=== PATIENT | female | born 1995 | race Caucasian/White ===

== ENCOUNTER 2024-01-04 17:11 | Emergency (ER) | payer OTHER, SELFPAY ==
[2024-01-04 17:26] VITALS: BP 156/102; PULSE 108; RESP 20; TEMP 37.1; O2SAT 99
[2024-01-04 17:28] VITALS: BP 156/102; PULSE 108; RESP 20; TEMP 37.1; O2SAT 99
--- NOTE | 2024-01-04 17:46 | ED.URI ---
HPI - URI/Sore Throat General Chief Complaint: Upper Respiratory Infection Stated Complaint: cough Source: patient Mode of arrival: ambulatory Limitations: no limitations History of Present Illness HPI Narrative: 28-year-old female presented for complaint of cough and headache. Onset today. Endorses family with similar symptoms. She took a dose of DayQuil today. Patient smokes approximately 1/3 BPD. Denies shortness of breath, wheezing, nausea, vomiting, fevers or chills. Related Data Allergies Allergy/AdvReac Type Severity Reaction Status Date / Time No Known Allergies Allergy Unverified 01/07/16 15:57 Review of Systems Review of Systems: CONSTITUTIONAL: Denies body aches, fever, chills, or sweats. EYES: Denies visual changes, redness, or discharge. ENT: Denies rhinorrhea, congestion, sore throat, or otalgia. CARDIOVASCULAR: Denies chest pain, palpitations, or edema. RESPIRATORY: Reports cough, denies sob, wheezing. SKIN: Denies rash, itching, or wounds. MUSCULOSKELETAL: Denies back pain, joint pain, or myalgia. NEUROLOGIC: Denies numbness, tingling, or weakness. All systems reviewed & are unremarkable except as noted in HPI and below PMFSH Comments At time of signature, I have reviewed and agree with nursing past medical, surgical, social and family history unless otherwise noted. Please see nursing chart for further information. There is no relevant family history pertinent to the presenting complaint Exam Narrative: GENERAL: Well-appearing, in no acute distress. EYES: EOMI. No redness or drainage. Conjunctivae normal. ENT: Mucous membranes pink and moist. No rhinorrhea. TMs normal bilaterally. Throat normal. Uvula midline. NECK: Normal AROM. Supple. CHEST: No respiratory distress.Lungs clear to all zamorano. HEART: Regular rate and rhythm. No murmur appreciated. ABDOMEN: Soft, nontender, nondistended, normal active bowel sounds. SKIN: Warm, dry, no rash. Capillary refill normal. Normal skin turgor. NEURO: Alert and oriented x3. Gait steady. PSYCH: Normal affect. Course Course Emergency Course: Patient is aware of diagnosis, understands and agrees to treatment plan. Anticipatory guidance given. Patient agrees to follow-up as directed and is aware of reasons to seek care at the emergency department. Portions of this record may have been created with voice recognition software Level of Care: Express Care Visit Vital Signs Vital signs: Vital Signs Temperature 98.7 F 01/04/24 17:26 Pulse Rate 108 H 01/04/24 17:26 Respiratory Rate 20 01/04/24 17:26 Blood Pressure 156/102 H 01/04/24 17:26 Pulse Oximetry 99 01/04/24 17:26 Oxygen Delivery Room Air 01/04/24 17:26 Temperature 98.7 F 01/04/24 17:28 Pulse Rate 108 H 01/04/24 17:28 Respiratory Rate 20 01/04/24 17:28 Blood Pressure 156/102 H 01/04/24 17:28 Pulse Oximetry 99 01/04/24 17:28 Oxygen Delivery Room Air 01/04/24 17:28 MDM - URI/Sore Throat MDM Narrative Medical decision making narrative: declined viral testing . Discussed physical exam findings. Rx steroid. Advised supportive measures and signs/symptoms to go to the ER. Pt is appropriate for outpt treatment and f/u. Differential Diagnosis Differential diagnosis: Likely upper respiratory infection, otitis media, sinusitis, viral infection and bronchitis Discharge Plan Discharge Clinical Impression: Bronchitis Patient Disposition: Home, Self-Care Condition: Stable Instructions: Antibiotic Form, How to Stop Smoking (ED), Acute Bronchitis (ED) Additional Instructions: Your blood pressure reading was elevated (above 120/80) please follow-up with your primary care provider for further evaluation and management. If you develop worsening Blood Pressure symptoms, (headache, vision changes, dizziness, vomiting, chest pain, etc) go to the ER. Call 911. Take medication as directed Recommend Flonase spray and Zyrtec (or
== END 2024-01-04 17:53 | disposition home or self-care (01) ==
PROVIDERS: Emergency Provider Nurse Practitioner Family
DX: J40 Bronchitis, not specified as acute or chronic (principal)
CPT/HCPCS: 99213; G0463

== ENCOUNTER 2024-08-01 15:04 | Emergency (ER) | payer OTHER, SELFPAY ==
[2024-08-01 15:19] VITALS: BP 153/98; PULSE 111; RESP 16; TEMP 37; O2SAT 99
--- NOTE | 2024-08-01 15:24 | ED_ITS ---
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 Patient reports that she has history of being able to get but unable to carry baby she thinks she had miscarriage. Patient reports some lower abdomen cramping states like period cramps and reports that bleeding is light now. Patient reports that she has appointment tomorrow with PLATFORM OPERATIONS DIRECTOR in [place] for follow up. She states she needs note to return to work tomorrow. Patient reports that her menses are irregular unsure when last one. MD elicited complaint: possible miscarriage Onset (ago): day(s) (2 days ago) Location of symptoms: suprapubic (above) Severity scale (1-10): 4 Quality of pain: cramping Vaginal bleeding: scant (light) Treatment prior to arrival: other (Naprosyn and heating pad) Related Data Allergies Allergy/AdvReac Type Severity Reaction Status Date / Time No Known Allergies Allergy Unverified 01/07/16 15:57 Review of Systems Review of Systems: CONSTITUTIONAL: Denies fever, chills, or sweats. CARDIOVASCULAR: Denies chest pain, palpitations, or edema. RESPIRATORY: Denies cough or dyspnea. GASTROINTESTINAL: Denies acute abdominal pain, nausea, vomiting, or diarrhea. GENITOURINARY: Reports no dysuria, frequency, urgency. Denies flank pain or hematuria.Reports pelvic cramping and light vaginal bleeding SKIN: Denies rash or itching. MUSCULOSKELETAL: Denies back pain or myalgia. Denies CVA tenderness NEUROLOGIC: Denies headache All systems reviewed & are unremarkable except as noted in HPI and below PMFSH Past Medical History Medical History (Updated 08/03/24 @ 08:10 by Shirley Guerra NP) Asthma as child Miscarriage Obesity Surgical History Surgical History (Updated 08/03/24 @ 08:07 by Shirley Guerra NP) Previous section Social History Social History (Updated 08/03/24 @ 08:09 by Shirley Guerra NP) Smoking packs per day: 1 Smoking cigarettes per day: 20.0 Smoking status: Current every day smoker Tobacco type: cigarettes Alcohol intake: unknown Substance use: unknown Living arrangements: with family Gender identity (if verbalized by the patient): Female Comments At time of signature, agree with nursing past medical, surgical, social and family history. There is no relevant family history pertinent to the presenting complaint Exam Narrative: GENERAL: Well-appearing, well-nourished,obese and in no acute distress. HEAD: Normocephalic, atraumatic. NECK: Supple.no lymphadenopathy CHEST: Clear to auscultation. No respiratory distress.SAO2 99% on room air HEART: Regular rate and rhythm. No murmur heard. Normal peripheral pulses. ABDOMEN: Soft, nontender, nondistended, normal active bowel sounds. No CVA tenderness, pelvic cramping with light vaginal bleeding EXTREMITIES: Normal range of motion. No edema. SKIN: Warm, dry, no rash. NEURO: No focal deficits. Alert and oriented x3. Course Course Emergency Course: Patient is aware of diagnosis, understands and agrees to treatment plan.? Anticipatory guidance given.? Patient agrees to follow-up as directed and is aware of reasons to seek care at the emergency department. Portions of this record may have been created with voice recognition software Level of Care: Express Care Visit Vital Signs Vital signs: Vital Signs Temperature 37.0 C 08/01/24 15:19 Pulse Rate 111 H 08/01/24 15:19 Respiratory Rate 16 08/01/24 15:19 Blood Pressure 153/98 H 08/01/24 15:19 Pulse Oximetry 99 08/01/24 15:19 Oxygen Delivery Room Air 08/01/24 15:19 Temperature 37.0 C 08/01/24 15:19 Pulse Rate 111 H 08/01/24 15:19 Respiratory Rate 16 08/01/24 15:19 Blood Pressure 153/98 H 08/01/24 15:19 Pulse Oximetry 99 08/01/24 15:19 Oxygen Delivery Room Air 08/01/24 15:19 reviewed MDM - Female Genitourinary MDM Narrative Medical decision making narrative: Exam findings and UA show no acute concerns or changes; patient is non-toxic appearing and is in no distress.? Patient is appropriate for outpatient treatment and follow-up. Differential Diagnosis Differential diagnosis: Likely ruptured ovarian cyst and other (vaginal bleeding. possible miscarriage, uterine cramping) Medical Records Attestation: I reviewed the patient's medical records. Lab Data Attestation: I reviewed the patient's lab results. Critical Care Time Critical Care Time Critical Care Time: No Discharge Plan Discharge Clinical Impression: Uterine cramping, Vaginal bleeding Patient Disposition: Home, Self-Care Condition: Stable Instructions: Threatened Miscarriage (ED) Additional Instructions: Tylenol or ibuprofen for any fever pain can use Naprosyn Follow-up with PLATFORM OPERATIONS DIRECTOR tomorrow at appointment scheduled after work If increased bleeding or pain go directly to emergency room for further evaluation Maintain adequate fluid intake and also eat well-balanced diet If your symptoms persist, change or worsen significantly before you can contact your personal physician then please, without delay, go to the emergency department for further evaluation. Follow-up with PCP in 7-10 days or sooner if needed Follow up with PCP soon in regards to your blood pressure which is elevated above threshold for referral. Blood pressure above 120/80 may indicate pre-hypertension.153/98 Follow-up/Referrals: Mary Eisenberg RN [Primary Care Provider] - Stand Alone Forms: Work/School Release IP Time of Disposition: 15:49 Quality [place] Coma Scale Eyes: Open Verbal: Oriented and Alert Motor: Follows Commands [place] Coma Total Score: 15
== END 2024-08-01 15:57 | disposition home or self-care (01) ==
PROVIDERS: Emergency Provider Registered Nurse
DX: N94.6 Dysmenorrhea, unspecified (principal); N93.9 Abnormal uterine and vaginal bleeding, unspecified; F17.210 Nicotine dependence, cigarettes, uncomplicated; E66.9 Obesity, unspecified
CPT/HCPCS: 99211; G0463

== ENCOUNTER 2024-09-18 16:24 | Emergency (ER) | payer OTHER, SELFPAY ==
[2024-09-18 16:35] VITALS: BP 139/52; PULSE 108; RESP 24; TEMP 36.7; O2SAT 95
--- NOTE | 2024-09-18 17:17 | ED.URI ---
HPI - URI/Sore Throat General Chief Complaint: Upper Respiratory Infection Stated Complaint: poss Bronchitis Time Seen by Provider: 09/18/24 17:19 Source: patient, RN notes reviewed and old records reviewed Mode of arrival: ambulatory Limitations: no limitations History of Present Illness HPI Narrative: 28 year old female who presents to [facility] care with complaints of being seen in the ED 6 days ago and was diagnosed with Influenza A and received Tamiflu was given a breathing treatment in the ER and was sent home with nebulizer treatments. Patient reports that they saw Bronchitis on her chest x-ray. Patient does report history of asthma states she doesn't have an inhaler and states cough continues. Patient reports no recent fevers but reports continued wheezing. Patient does use tobacco daily. MD elicited complaint: cough and other (wheezing and some dyspnea) Pertinent past history: asthma Onset (ago): day(s) (initial symptoms started 10 days) Consistency: constant Severity: moderate Description of mucous: clear Able to tolerate fluids by mouth: Yes Treatments prior to arrival: other (Tamiflu, nebs) Related Data Home Medications ?Medication ?Instructions ?Recorded ?Confirmed ?Last Taken ?Type albuterol sulfate 2.5 mg/3 mL mg 09/18/24 Unknown History (0.083 %) solution for nebulization oseltamivir 75 mg capsule mg 09/18/24 Unknown History Allergies Allergy/AdvReac Type Severity Reaction Status Date / Time No Known Allergies Allergy Verified 09/18/24 16:49 Review of Systems Review of Systems: CONSTITUTIONAL: Reports malaise, no present chills, sweats, or fever. EYES: Denies visual changes, redness, or discharge. ENT: Reports rhinorrhea, congestion, no sinus pain, no otalgia and no sore throat. CARDIOVASCULAR: Denies chest pain, palpitations, or edema. RESPIRATORY: Reports cough.? Reports dyspnea. GASTROINTESTINAL: Denies abdominal pain, nausea, vomiting, diarrhea SKIN: Denies rash or itching.has eczema MUSCULOSKELETAL: Denies myalgia. NEUROLOGIC: Denies headache. All systems reviewed & are unremarkable except as noted in HPI and below PMFSH Past Medical History Medical History Eczema Obesity Asthma Miscarriage Surgical History Surgical History Previous section Social History Social History Smoking packs per day: 1 Smoking cigarettes per day: 20.0 Smoking status: Current every day smoker Tobacco type: cigarettes Alcohol intake: unknown Substance use: unknown Living arrangements: with family Gender identity (if verbalized by the patient): Female Comments At time of signature, agree with nursing past medical, surgical, social and family history. There is no relevant family history pertinent to the presenting complaint Exam Narrative: GENERAL: Well-appearing, well-nourished,unkept appearance obese. and in no acute distress. HEAD: Normocephalic EYES: PERRLA, conjunctivae clear ENT: Nares clear, turbinates edematous and erythematous, clear discharge. Mucous membranes moist. TM pearly duong with dull light reflex bilaterally; no tragal tenderness. Oropharynx erythematous without lesions. Tonsils not enlarged and without exudate, no drooling, no hoarseness, no trismus, uvula midline.post nasal drainage noted NECK: Supple. No lymphadenopathy CHEST: Scattered wheezing on auscultation, breath sounds equal.+wheezing,no rhonchi, rales, or stridor. No respiratory distress, speaks in full sentences. cough noted SAO2 95% on room air HEART: Regular rate and rhythm. No murmur heard. SKIN: Warm, dry, no rash. NEURO: Alert and oriented x3. PSYCH: Normal mood and affect Course Course Emergency Course: Patient is aware of diagnosis, understands and agrees to treatment plan.? Anticipatory guidance given.? Patient agrees to follow-up as directed and is aware of reasons to seek care at the emergency department. Portions of this record may have been created with voice recognition software Level of Care: Express Care Visit Vital Signs Vital signs: Vital Signs Temperature 36.7 C 09/18/24 16:35 Pulse Rate 108 H 09/18/24 16:35 Respiratory Rate 24 H 09/18/24 16:35 Blood Pressure 139/52 L 09/18/24 16:35 Pulse Oximetry 95 09/18/24 16:35 Oxygen Delivery Room Air 09/18/24 16:35 Temperature 36.7 C 09/18/24 16:35 Pulse Rate 108 H 09/18/24 16:35 Respiratory Rate 24 H 09/18/24 16:35 Blood Pressure 139/52 L 09/18/24 16:35 Pulse Oximetry 95 09/18/24 16:35 Oxygen Delivery Room Air 09/18/24 16:35 Reviewed MDM - URI/Sore Throat MDM Narrative Medical decision making narrative: Differential diagnosis considered: Avendano virus, strep pharyngitis, allergic rhinitis, upper respiratory tract infection, sinusitis, rhinosinusitis, nasopharyngitis. viral pharyngitis, otitis media, otitis externa, pneumonia, bronchitis, viral cough syndrome, viral syndrome, and influenza.? Exam findings show no acute concerns or changes; patient is non-toxic appearing and is in no distress.? Patient is appropriate for outpatient treatment and follow-up. Differential Diagnosis Differential diagnosis: Likely upper respiratory infection, viral infection, bronchitis, influenza and other (exacerbation of asthma) Medical Records Attestation: I reviewed the patient's medical records. Lab Data Attestation: I reviewed the patient's lab results. Critical Care Time Critical Care Time Critical Care Time: No Discharge Plan Discharge Clinical Impression: Asthma exacerbation Qualifiers: Asthma severity: moderate Asthma persistence: persistent Qualified Code(s): J45.41 - Moderate persistent asthma with (acute) exacerbation Patient Disposition: Home, Self-Care Condition: Stable Instructions: Antibiotic Form, Asthma (ED), Influenza (ED) Additional Instructions: Increase fluids especially juices and water Feih-fuw-[id number] cough and cold medicine of your choice for your symptoms Continue your inhaler/nebulizer as directed Zyrtec Claritin or Marielle daily Steroids as directed--take with food heat to the face 20-30 minutes 4-6 times a day for pain Salt water gargles, throat lozenges or throat sprays as desired If your symptoms persist, change or worsen significantly before you can contact your personal physician then please, without delay, go to the emergency department for further evaluation. Follow-up with PCP in 7-10 days or sooner if needed Follow up with PCP soon in regards to your blood pressure which is elevated above threshold for referral. Blood pressure above 120/80 may indicate pre-hypertension. 139/52 STOP SMOKING Patient Language: Khmer Prescriptions: New prednisone 20 mg tablet 20 mg PO BID Qty: 10 0RF albuterol sulfate [Ventolin HFA] 90 mcg/actuation HFA aerosol inhaler 2 puff inhalation QID PRN (Reason: shortness of breath or wheezing) Qty: 8.5 0RF loratadine [Claritin] 10 mg tablet 10 mg PO DAILY Qty: 20 0RF No Action albuterol sulfate 2.5 mg /3 mL (0.083 %) solution for nebulization oseltamivir 75 mg capsule Follow-up/Referrals: PHYSICIAN NOT ON STAFF,NONSTAFF [Primary Care Provider] - Time of Disposition: 17:44 Quality [place] Coma Scale Eyes: Open Verbal: Oriented and Alert Motor: Follows Commands Isabella Coma Total Score: 15
== END 2024-09-18 17:50 | disposition home or self-care (01) ==
PROVIDERS: Emergency Provider Registered Nurse
DX: J45.901 Unspecified asthma with (acute) exacerbation (principal); F17.210 Nicotine dependence, cigarettes, uncomplicated; E66.9 Obesity, unspecified; Z68.43 Body mass index [BMI] 50.0-59.9, adult
CPT/HCPCS: 99213; G0463

== ENCOUNTER 2025-01-12 15:46 | Emergency (ER) | payer OTHER, SELFPAY ==
[2025-01-12 16:17] VITALS: BP 103/83; PULSE 93; RESP 16; TEMP 36.9; O2SAT 99
[2025-01-12 16:24] LABS: EDSTREPNEGPOS1 Negative (Negative)
--- OUTSIDE RECORDS SUMMARY | 2025-01-12 16:44 | XMS_ITS | Clinical Summary ---
Author Organization [facility] Care Team Providers Care Bar Attendant Name Role Phone Darrick Aisha Tiffanie BERG Primary Care Provider [phone] Allergies No known active allergies Medications methylPREDNISol one (MEDROL, ANA,) 4 mg tablet take as directed 1 0 6 Active promethazine-co deine (PHENERGAN with CODEINE) 1.25-2 mg/mL syrupIndication s:Influenza A Take 5 mL by mouth every 4 (four) hours as needed for cough 240 mL 5 Active albuterol 2.5 mg /3 mL (0.083 %) nebulizer solution Take 3 mL (2.5 mg total) by nebulization every 6 (six) hours as needed for wheezing 75 mL 5 09/12/19 26 Active Active Problems Problem Noted Date Diagnosed Date Bipolar I disorder, most recent episode depresse d 08/02/2013 Overview (12/17/2016): Bipolar disorder with depression Tobacco use 08/02/2013 Overview (12/17/2016): Tobacco use Medical History Medical History Date Comments Hx Other Medical Bipolar disorde r Social History Tobacco Use Types Packs/Day Years Used Date Smoking Tobacco: Heavy Smoker Comments:Smoking History Pac ks/day: 10 Cigarettes Alcohol Use Standard Drinks/Week Comments No 0 (1 standard drink = 0.6 oz pur e alcohol) Personal Safety Answer Date Recorded Have you ever been in or are you currently in a harmful physical or emotional relationship or is someone making you feel afraid or unsafe? 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 Gender Identity Not on file Sexual Orientation Not on file Obstetrics History Last Filed Vital Signs Vital Sign Reading Time Taken Comments Blood Pressure 144/72 09/12/2024 9:20 PM FOOD CART ATTENDANT Pulse 104 09/12/2024 9:20 PM FOOD CART ATTENDANT Temperature 37 C (98.6 F) 09/12/2024 8:38 PM FOOD CART ATTENDANT Respiratory Rate 20 09/12/2024 9:20 PM FOOD CART ATTENDANT Oxygen Saturation 95% 09/12/2024 9:20 PM FOOD CART ATTENDANT Inhaled Oxygen Concentration - - Weight 158.8 kg (350 lb) 09/12/2024 3:40 PM FOOD CART ATTENDANT Height 167.6 cm (5' 6 ) 09/12/2024 3:40 PM FOOD CART ATTENDANT Body Mass Index 56.49 09/12/2024 3:40 PM FOOD CART ATTENDANT Plan of Treatment Health Maintenance Due Date Last Done Comments Cervical Cancer Screening 1994 Depression Screening 1994 Hepatitis C Screening 1994 Varicella Vaccines (1 of 2 - 13+ 2-dose series) 2007 Regular Well Visit/Exam 18-64 2012 Pneumococcal vaccine <65 (1 of 2 - PCV) 2013 Covid-19 Vaccine (2 - 2023- season) 2024 02/19/2022 DTaP/Tdap/Td Vaccine (7 - Td or Tdap) 03/12/2025 03/12/2015, 06/21/2002, 06/11/1996, Additional history exists Influenza Vaccine (Season Ended) 2025 Hepatitis B Screening Completed 07/08/1995 , 1994, 1994 HPV Vaccines Aged Out No longer eligi ble based on patient's age to complete this topic Insurance [employer] Care Teams Bar Attendant Relationship Specialty Start Date End Date Aisha Hollingsworth NP PCP - General Nurse Practitioner 02/17/22
--- OUTSIDE RECORDS SUMMARY | 2025-01-12 16:44 | XMS_ITS | Referral Summary ---
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 CONTROLLER Gender Identity Not on file Sexual Orientation Not on file Last Filed Vital Signs Vital Sign Reading Time Taken Comments Blood Pressure 144/72 09/12/2024 9:20 PM STATUS CONTROLLER Pulse 104 09/12/2024 9:20 PM STATUS CONTROLLER Temperature 37 C (98.6 F) 09/12/2024 8:38 PM STATUS CONTROLLER Respiratory Rate 20 09/12/2024 9:20 PM STATUS CONTROLLER Oxygen Saturation 95% 09/12/2024 9:20 PM STATUS CONTROLLER Inhaled Oxygen Concentration - - Weight 158.8 kg (350 lb) 09/12/2024 3:40 PM STATUS CONTROLLER Height 167.6 cm (5' 6 ) 09/12/2024 3:40 PM STATUS CONTROLLER Body Mass Index 56.49 09/12/2024 3:40 PM STATUS CONTROLLER Plan of Treatment Not on file Insurance [facility] Care Teams Dent Remover Relationship Specialty Start Date End Date Aisha Hollingsworth NP PCP - General Nurse Practitioner 02/17/22
--- OUTSIDE RECORDS SUMMARY | 2025-01-12 16:44 | XMS_ITS | Clinical Summary ---
Author Organization [facility] Address [address] [address] Phone Care Team Providers Care Bog Cutter Name Role Phone Aisha Hollingsworth APRN, CNP Primary Care Provider + Allergies No known active allergies Medications fluticasone (FLONASE) 50 MCG/ACT Suspension 1 [place] by Nasal route daily. Use in each nostril as directed. 1 g 09/26/2024 Active Active Problems No known active problems Immunizations Immunization Administration Dates Next Due Covid-19 Vaccine, Vector-nr, Rs-ad26, Pf, 0.5 Ml (Soshowise/J&J) 02/19/2022 DTP Vaccine 06/11/1996, 5,03/29/1995,1994 Hepatitis B Vaccine, Pediatric/adolescent 07/08/1995,1994,1994 Hib Vaccine,unspecified Formulation 07/08/1995,0 03/29/1995,01/18/1995 Inactivated Polio Vaccine 06/21/2002 MMR Vaccine 06/21/2002,06/11/1996 OPV 06/11/1996,03/29/1995,01/18/1995 TD VACCINE 06/21/2002 TDAP Vaccine 03/12/2015 Family History Medical History Relation Name Comments No Known Problems Father Congestive Heart Failure Maternal Grandmother Multiple Sclerosis Mother Cancer Sister Relation Name Status Comments Father Maternal Grandmother Mother Sister Social History Tobacco Use Types Packs/Day Years Used Date Smoking Tobacco: Former Cigarettes 0.5 20.3 S tarted: 2004 Smokeless Tobacco: Never Alcohol Use Standard Drinks/Week Comments Not Currently 0 (1 standard drink = 0.6 oz pur e alcohol) Education Answer Date Recorded What is the highest level of school you have completed or the highest degree you have received? GED or equivalent Sexually Active Control Partners Comments Yes None Male Comments Unknown Sex and Gender Information Value Date Recorded Sex Assigned at Not on file Legal Sex Female 7:42 PM CDT Gender Identity Not on file Sexual Orientation Not on file Last Filed Vital Signs Vital Sign Reading Time Taken Comments Blood Pressure 150/97 09/26/2024 11:19 AM MUSIC PUBLICIST Pulse 100 09/26/2024 11:19 AM MUSIC PUBLICIST Temperature 37.3 C (99.1 F) 09/26/2024 10:10 AM MUSIC PUBLICIST Respiratory Rate 22 09/26/2024 11:19 AM MUSIC PUBLICIST Oxygen Saturation 98% 09/26/2024 11:19 AM MUSIC PUBLICIST Inhaled Oxygen Concentration - - Weight 163.3 kg (360 lb) 09/26/2024 10:10 AM MUSIC PUBLICIST Height 167.6 cm (5' 6 ) 09/26/2024 10:10 AM MUSIC PUBLICIST Body Mass Index 58.11 09/26/2024 10:10 AM MUSIC PUBLICIST Plan of Treatment Health Maintenance Due Date Last Done Comments Hepatitis C Virus (HCV) Screening 1994 Pap Smear 2015 Influenza Immunization (#1) 2024 SARS-COV-2 Immunization ( season) 2024 02/19/2022 Cervical Cancer Screening (CCS) 2024 HPV/Cotest 2024 DTaP/Tdap/Td Immunization (7 - Td or Tdap) 03/12/2025 03/12/2015, 06/21/2002, 06/11/1996, Additional history exists Respiratory Syncytial Virus (RSV) Immunization (Adult) (1 - 1-dose 75+ series) 2069 Hepatitis B Immunization Completed 995, 1994, 1994 Meningococcal Immunization (ACWY) Aged Out No longer eligible based on patient's age to complete this topic Pneumococcal Immunization Combined Aged Out No longer eligible based on patient's age to complete this topic Rotavirus Immunization Aged Out No lo nger eligible based on patient's age to complete this topic Insurance MEDICAID [employer] Care Teams Bog Cutter Relationship Specialty Start Date End Date Aisha Hollingsworth APRN, WHEEL INSTALLER [address] [place] [address] PCP - General Advanced Practice Nurse 09/26/24
--- OUTSIDE RECORDS SUMMARY | 2025-01-12 16:44 | XMS_ITS | Clinical Summary ---
Author Organization [facility] Address [address] [place] [address] Care Team Providers Care Industrial Chemist Name Role Phone Unavailable Primary Care Provider Unavailabl e Source Comments [facility],non-owned Affiliates and Associated Physician Practices is amultiple site organization consisting of ambulatory clinics and hospital sitesin [place], [place], [place] and [place]. This disclosure is being madepursuant to the Care Everywhere program and may not contain all information available regarding this patient. Last updated 18.[employer] [facility] Allergies No known active allergies Medications * Be aware that medications may not be up to date on this document. Alwaysverify current medications with the patient. ondansetron (ZOFRAN) 4 MG tablet Take 1 Tab by mouth every 4 hours as needed for Nausea/Vomiting. 10 Tab 0 4 Active Additional Information Patient not taking.Reported on 04/24/2015 omeprazole (PRILOSEC) 20 MG capsule Take 1 Cap by mouth daily before breakfast. 30 Cap 0 4 Active Active Problems Problem Noted Date Diagnosed Date Abdominal pain, acute 07/24/2013 Social History Tobacco Use Types Packs/Day Years Used Date Smoking Tobacco: Every Day Cigarettes 1.5 3 Smokeless Tobacco: Never Alcohol Use Standard Drinks/Week Comments Yes 0 (1 standard drink = 0.6 oz pur e alcohol) Comments No Sex and Gender Information Value Date Recorded Sex Assigned at Not on file Legal Sex Female 5:36 AM SENIOR TECHNICAL EDITOR Gender Identity Not on file Sexual Orientation Not on file Last Filed Vital Signs Vital Sign Reading Time Taken Comments Blood Pressure 144/95 08/19/2014 1:14 PM SENIOR TECHNICAL EDITOR Pulse 104 08/19/2014 1:14 PM SENIOR TECHNICAL EDITOR Temperature 37.1 C (98.7 F) 08/19/2014 8:32 AM SENIOR TECHNICAL EDITOR Respiratory Rate 20 08/19/2014 1:14 PM SENIOR TECHNICAL EDITOR Oxygen Saturation 98% 08/19/2014 1:07 PM SENIOR TECHNICAL EDITOR Inhaled Oxygen Concentration - - Weight 127.5 kg (281 lb) 07/10/2015 12:03 PM CDT Height 167.6 cm (5' 6 ) 08/19/2014 8:32 AM SENIOR TECHNICAL EDITOR Body Mass Index 45.35 08/19/2014 8:32 AM SENIOR TECHNICAL EDITOR Plan of Treatment Health Maintenance Due Date Last Done Comments HIV SCREENING 2009 HEPATITIS C SCREENING 11/04/2012 DTAP/TDAP/TD VACCINES (1 - Tdap) 2013 HEPATITIS B VACCINE (1 of 3 - 19+ 3-dose series) 2013 COVID-19 VACCINE (1 - 2023-2 5 season) 2024 DEPRESSION SCREENING 09/12/2024 INFLUENZA VACCINE (Season Ended) 2025 ZOSTER VACCINE (1 of 2) 2044 HIB VACCINE Aged Out No longer eligi ble based on patient's age to complete this topic HPV VACCINE Aged Out No longer eligi ble based on patient's age to complete this topic MENINGOCOCCAL (Group B) VACC INE SHARED DECISION-MAKING Aged Out No longer eligibl e based on patient's age to complete this topic MENINGOCOCCAL GROUPS A/C/Y/W VACCINE Aged Out No longer eligible b ased on patient's age to complete this topic PNEUMOCOCCAL VACCINE Aged Out No long er eligible based on patient's age to complete this topic Insurance [employer]
--- NOTE | 2025-01-12 16:58 | ED.DENTAL ---
HPI - Dental/Oral General Chief complaint: Dental/Oral Stated complaint: lump in mouth Time Seen by Provider: 01/12/25 16:20 Source: patient and RN notes reviewed Mode of arrival: ambulatory Limitations: no limitations History of Present Illness HPI Narrative: 29-year-old female presents Express Care complaining possible dental abscess in the right upper mouth. Patient says she has multiple dental cavities reports worsening pain and swelling inside her mouth over the last week. Patient says he has appointment coming up in a month with her dentist to address the issue. Patient is worried she is a dental infection. Patient also says he is getting over an upper respiratory infection. Patient denies any chest pain, shortness of breath, difficulty eating, difficulty swallowing, or any swelling under her tongue. Related Data Home Medications ?Medication ?Instructions ?Recorded ?Confirmed ?Last Taken ?Type albuterol sulfate 2.5 mg/3 mL mg 09/18/24 Unknown History (0.083 %) solution for nebulization Allergies Allergy/AdvReac Type Severity Reaction Status Date / Time No Known Allergies Allergy Verified 01/12/25 16:21 Review of Systems Review of Systems: CONSTITUTIONAL: Denies fever, chills, or sweats. EYES: Denies visual changes, redness, or discharge. ENT: Denies rhinorrhea, congestion, sore throat, difficulty swallowing, or otalgia. MOUTH: Positive for dental pain and swelling. CARDIOVASCULAR: Denies chest pain, palpitations, or edema. RESPIRATORY: Denies cough or dyspnea. GASTROINTESTINAL: Denies abdominal pain, nausea, vomiting, or diarrhea. GENITOURINARY: Denies dysuria or hematuria. SKIN: Denies rash or itching. MUSCULOSKELETAL: Denies back pain, joint pain, or myalgia. NEUROLOGIC: Denies headache, numbness, or weakness. PSYCHIATRIC: Denies anxiety or depression. All other systems reviewed are negative, except as documented in HPI. [facility] Past Medical History Medical History Eczema Obesity Asthma Miscarriage Surgical History Surgical History Previous section Social History Social History Smoking packs per day: 1 Smoking cigarettes per day: 20.0 Smoking status: Current every day smoker Tobacco type: cigarettes Alcohol intake: unknown Substance use: unknown Living arrangements: with family Gender identity (if verbalized by the patient): Female Comments At the time of my signature, I reviewed and agree with the nursing past medical, surgical, social, and family history. There is no relevant family history pertinent to the patient complaint. Exam Narrative: GENERAL: This is a well-nourished, well-developed adult, in no apparent distress. They are non ill-appearing, nontoxic appearing. Patient is morbidly obese. Difficult exam due to large body habitus. HEAD: normocephalic, atraumatic. EYES: Sclera clear/white. Conjunctiva normal. Vision is grossly intact. Extraocular movements intact EARS: External ears normal, auditory canals clear and without drainage, TMs normal without perforation. Hearing grossly intact. NOSE: External nose normal with no obvious nasal discharge, nasal turbinates erythemic without swelling. No rhinorrhea. THROAT: Mucous membranes moist, posterior pharynx clear, without erythema or swelling. Uvula midline. Normal movement of soft palate. MOUTH: Multiple dental caries present. Gingivitis present to the upper gumline extending to the right side. Mild swelling to the right upper gum. No area of fluctuance or induration. No trismus. No swelling or pain of the tongue. No exudate. NECK: Neck supple, non-tender without lymphadenopathy, masses or thyromegaly. CARDIOVASCULAR: Regular rate and rhythm without murmurs, gallops, or rubs. RESPIRATORY: Clear to auscultation. Breath sounds equal bilaterally. No wheezes, rales, or rhonchi. SKIN: warm, Dry, intact with no suspicious lesions or rash, good texture and turgor. NEURO: awake, alert, and oriented to person, place and time. There were no obvious focal neurologic abnormalities. EXTREMITIES: No joint tenderness, effusion, or edema noted. BACK: Nontender without deformity. No CVA tenderness. Course Course Emergency Course: Portions of this record may have been created with voice recognition software Level of Care: Express Care Visit Vital Signs Vital signs: Vital Signs Temperature 98.5 F 01/12/25 16:17 Pulse Rate 93 01/12/25 16:17 Respiratory Rate 16 01/12/25 16:17 Blood Pressure 103/83 01/12/25 16:17 Pulse Oximetry 99 01/12/25 16:17 Oxygen Delivery Room Air 01/12/25 16:17 Temperature 98.5 F 01/12/25 16:17 Pulse Rate 93 01/12/25 16:17 Respiratory Rate 16 01/12/25 16:17 Blood Pressure 103/83 01/12/25 16:17 Pulse Oximetry 99 01/12/25 16:17 Oxygen Delivery Room Air 01/12/25 16:17 Reviewed MDM - Dental/Oral MDM Narrative Medical decision making narrative: Rapid strep negative. Throat culture pending. Patient has multiple dental caries present with evidence of gingivitis. No evidence to suggest a dental abscess. Given patient's symptoms and swelling will go ahead and treat your for dental infection with Augmentin. Patient advised follow-up with dentist. Discussed physical exam findings. Advised supportive measures and signs/symptoms to go to the ER. Pt is appropriate for outpt treatment and f/u. Differential Diagnosis Differential diagnosis: Likely dental caries, toothache and dental abscess Lab Data Attestation: I reviewed the patient's lab results. Labs: Lab Results 01/12/25 Range/Units 16:22 POC Grp A Strep Screen Negative (Negative) Critical Care Time Critical Care Time Critical Care Time: No Discharge Plan Discharge Clinical Impression: Dental caries Patient Disposition: Home Condition: Stable Instructions: Antibiotic Form, Mouth Care (ED) Additional Instructions: Your rapid strep swab was negative today at [facility]. You will be notified in a few days if the culture comes back positive for strep. Please take antibiotics as directed. Please follow-up with your dentist. Pressure teeth at least twice a day and floss twice a day. He may also use mouthwash at least twice a day after each brush. Please go to the ER if you develop worsening swelling, difficulty breathing, difficulty eating, or any other concerns. Patient Language: [place] Prescriptions: New amoxicillin-pot clavulanate 875-125 mg tablet 1 tablet PO Q12H 7 Days Qty: 14 0RF No Action albuterol sulfate 2.5 mg /3 mL (0.083 %) solution for nebulization prednisone 20 mg tablet 20 mg PO BID Qty: 10 0RF albuterol sulfate [Ventolin HFA] 90 mcg/actuation HFA aerosol inhaler 2 puff inhalation QID PRN (Reason: shortness of breath or wheezing) Qty: 8.5 0RF loratadine [Claritin] 10 mg tablet 10 mg PO DAILY Qty: 20 0RF Follow-up/Referrals: PHYSICIAN,VE TEACHER [Primary Care Provider] - Stand Alone Forms: Work/School Release IP Time of Disposition: 16:40
== END 2025-01-12 16:57 | disposition home or self-care (01) ==
DX: K02.9 Dental caries, unspecified (principal); F17.200 Nicotine dependence, unspecified, uncomplicated
CPT/HCPCS: 87081; 87880; 99213; G0463